=== PATIENT | male | born 2000 | race Caucasian/White ===

== ENCOUNTER 2022-04-29 11:05 | Emergency (ER) | payer MEDICAID | END 2022-04-29 12:12 | disposition home or self-care (01) | LOC: MW.ED 11:05 | DX: Z71.1 Person with feared health complaint in whom no diagnosis is made (principal); F17.210 Nicotine dependence, cigarettes, uncomplicated | CPT/HCPCS: 99282 ==

== ENCOUNTER 2022-08-19 00:14 | Emergency (ER) | payer MEDICAID ==
[2022-08-19] MEDS ORDERED: Cefdinir 300 MG Cap PO ONE (00:33)
[2022-08-19] MEDS ORDERED: Dexamethasone 10 MG/ML SDV PO ONE (00:33)
== END 2022-08-19 01:06 | disposition home or self-care (01) ==
LOC: MW.ED 00:14
DX: J02.9 Acute pharyngitis, unspecified (principal); I88.9 Nonspecific lymphadenitis, unspecified; Z88.0 Allergy status to penicillin
CPT/HCPCS: 99282; A9270; J8540

== ENCOUNTER 2023-01-27 10:02 | Emergency (ER) | payer SELFPAY | END 2023-01-27 12:53 | disposition home or self-care (01) | LOC: MW.ED 10:02 | DX: S93.601A Unspecified sprain of right foot, initial encounter (principal); Z88.0 Allergy status to penicillin; Z72.0 Tobacco use; X50.1XXA Overexertion from prolonged static or awkward postures, initial encounter | CPT/HCPCS: 73620-26-RT; 73620-RT; 99283 ==

== ENCOUNTER 2023-06-23 22:25 | Emergency (ER) | payer SELFPAY ==
[2023-06-23] MEDS: Diphtheria,Pertussis(Acell),Tetanus Vaccine 0.5 ML Syringe IM ONE (22:51)
[2023-06-23] MEDS: Octyl 2-Cyanoacrylate 1 g/1 mL 1 APPLIC PEN TOP ONE (22:51)
== END 2023-06-23 22:56 | disposition home or self-care (01) ==
LOC: MW.ED 22:25
DX: S61.211A Laceration without foreign body of left index finger without damage to nail, initial encounter (principal); Z88.0 Allergy status to penicillin; Z23 Encounter for immunization; W26.8XXA Contact with other sharp object(s), not elsewhere classified, initial encounter
CPT/HCPCS: 12001; 90471; 90715; 99282; A9270; 99283

== ENCOUNTER 2024-03-21 11:14 | Emergency (ER) | payer SELFPAY | END 2024-03-21 12:08 | disposition home or self-care (01) | LOC: MW.ED 11:14 | DX: J02.9 Acute pharyngitis, unspecified (principal); Z88.0 Allergy status to penicillin; Z79.2 Long term (current) use of antibiotics; Z90.49 Acquired absence of other specified parts of digestive tract | CPT/HCPCS: 99282; 99283 ==